=== PATIENT | male | born 1960 | race Two or more races ===

== ENCOUNTER 2023-09-26 16:55 | Emergency (ER) | payer BC ==
[~2023-09-26] VITALS: Ht 182.9 cm; Wt 88.5 kg
[2023-09-26] MEDS ORDERED: CYCLOBENZAPRINE 10 MG TABLET ONE (17:17)
[2023-09-26] MEDS ORDERED: KETOROLAC TROMETHAMINE INJ 30 MG/ML VIAL ONE (17:17)
[2023-09-26] MEDS ORDERED: KETOROLAC TROMETHAMINE INJ 30 MG/ML VIAL IM ONE (17:30)
[2023-09-26] MEDS ORDERED: CYCLOBENZAPRINE 10 MG TABLET PO ONE (17:30)
[2023-09-26] MEDS ORDERED: ACETAMINOPHEN ES 500 MG TABLET PO ONE (19:30)
[2023-09-26] MEDS ORDERED: ACETAMINOPHEN ES 500 MG TABLET ONE (19:39)
[2023-09-26] MEDS ORDERED: dexaMETHasone SOD PHOSPHATE 10 MG/ML VIAL IM ONE (20:00)
[2023-09-26] MEDS ORDERED: LIDOCAINE 5% (PATCH) 1 EA PATCH TP SCH (20:00)
[2023-09-26] MEDS ORDERED: LIDOCAINE 5% (PATCH) 1 EA PATCH TP ONE (20:20)
[2023-09-26] MEDS ORDERED: IBUP-1955 PO (20:27)
[2023-09-26] MEDS ORDERED: ACET-2605 PO (20:27)
[2023-09-26] MEDS ORDERED: CYCL5TAB PO (20:27)
[2023-09-26 20:56] VITALS: BP 136/99; TEMP 98; O2SAT 98
== END 2023-09-26 20:57 | disposition home or self-care (01) ==
LOC: ER 17:09
DX: M54.50 Low back pain, unspecified (principal); Z88.0 Allergy status to penicillin
CPT/HCPCS: 99284; 96372 ×2; J1885